=== PATIENT | female | born 1995 | race African-American/Black ===

== ENCOUNTER 2017-02-13 20:19 | Emergency (ER) | payer OTHER ==
[~2017-02-13 20:19] MED LIST: ALL DAY ALLERGY10 M2 PO; BENTYL20 M1 PO; FLONASE 0.05% N16 G1; PHENERGAN25 MG PO
== END 2017-02-13 23:20 | disposition home or self-care (01) ==
LOC: CFTX 20:19 → CED 20:19 → CFTX 22:09
DX: G89.18 Other acute postprocedural pain (principal); K08.409 Partial loss of teeth, unspecified cause, unspecified class; Z88.2 Allergy status to sulfonamides
CPT/HCPCS: 99282